=== PATIENT | male | born 1950 | race Caucasian/White ===

== ENCOUNTER 2019-03-12 12:20 | Emergency (ER) | payer OTHER, BC ==
--- NOTE | 2019-03-12 15:13 | ER ---
Nurse's Notes [facility] Name: Abhishek Maciel Age: 68 yrs Sex: Male : 1950 Arrival Date: 03/12/2019 Time: 12:23 Bed 28 Private MD: Diagnosis: Localized swelling, mass and lump, left lower limb Presentation: 03/12 12:44 Presenting complaint: Patient states: RLE swollen area that happened after his dog ran sv into his leg. The swelling has decreased but it still remains. Transition of care: patient was not received from another setting of care. Onset of symptoms was February 2019. Risk Assessment: Do you want to hurt yourself or someone else? Patient reports no desire to harm self or others. Care prior to arrival: None. 12:44 Method Of Arrival: Ambulatory sv 12:44 Acuity: JB 4 sv 14:10 Initial Sepsis Screen: Does the patient meet any 2 criteria? No. Patient's initial aa5 sepsis screen is negative. Does the patient have a suspected source of infection? No. Patient's initial sepsis screen is negative. Triage Assessment: 12:44 General: Appears in no apparent distress. comfortable, Behavior is calm, cooperative, sv appropriate for age. Pain: Denies pain. Neuro: Level of Consciousness is awake, alert, obeys commands, Gait is steady. Respiratory: Respiratory effort is even, unlabored, Respiratory pattern is regular, symmetrical. Musculoskeletal: Swelling present in medial aspect of left calf. Historical: - Allergies: 12:45 No Known Allergies; sv - PMHx: 12:45 None; sv - Ebola Screening: : No symptoms or risks identified at this time. Screenin:10 Abuse screen: Denies threats or abuse. Nutritional screening: No deficits noted. aa5 Tuberculosis screening: No symptoms or risk factors identified. Fall Risk None identified. Assessment: 14:10 General: Appears comfortable, Behavior is calm, cooperative. Pain: Denies pain. Neuro: aa5 Level of Consciousness is awake, alert, obeys commands, Oriented to person, place, time, situation. Cardiovascular: Patient's skin is warm and dry. Respiratory: Airway is patent Respiratory effort is even, unlabored, Respiratory pattern is regular, symmetrical. GI: No signs and/or symptoms were reported involving the gastrointestinal system. : No signs and/or symptoms were reported regarding the genitourinary system. EENT: No signs and/or symptoms were reported regarding the EENT system. Derm: Skin is pink, warm \T\ dry. Swollen area that is quater-sized noted to right moses, no bruising or redness noted to site. Musculoskeletal: Range of motion: intact in all extremities. 15:15 Reassessment: Patient is alert, oriented x 3, equal unlabored respirations, skin aa5 warm/dry/pink. Vital Signs: 12:45 BP 168 / 81; Pulse 69; Resp 18; Temp 98.4; Pulse Ox 98% ; Weight 74.84 kg; Height 5 ft. sv 8 in. (172.72 cm); Pain 0/10; 12:45 Body Mass Index 25.09 (74.84 kg, 172.72 cm) sv ED Course: 12:23 Patient arrived in ED. rg4 12:45 Triage completed. sv 12:46 Arm band placed on. sv 14:08 Sonia Orosco, RN is Primary Nurse. aa5 14:10 Patient has correct armband on for positive identification. Bed in low position. Call aa5 light in reach. Side rails up X 1. Adult w/ patient. 14:25 Arvin Meyers PA is PHCP. cp 14:25 Trevon Marks MD is Attending Physician. cp 15:12 Delfino Fiore MD is Referral Physician. cp 15:12 Referral Physician role handed off by Delfino Fiore MD cp 15:12 Joselito Curiel MD is Referral Physician. cp 15:15 No provider procedures requiring assistance completed. Patient did not have IV access aa5 during this emergency room visit. Administered Medications: No medications were administered Outcome: 15:13 Discharge ordered by MD. cp 15:15 Discharged to home ambulatory, with significant other. aa5 15:15 Condition: good 15:15 Discharge instructions given to patient, Instructed on discharge instructions, follow up and referral plans. Demonstrated understanding of instructions, follow-up care. 15:20 Patient left the ED. Signatures: Fatmata Weeks RN RN Sonia Orosco RN RN aa5 Arvin Meyers PA PA cp Baxter, Heather, RN RN hb Garcia, Rubi rg4
--- NOTE | 2019-03-12 15:13 | EDPHYS ---
Physician Documentation [facility] Name: Abhishek Maciel Age: 68 yrs Sex: Male : 1950 Arrival Date: 03/12/2019 Time: 12:23 Bed 28 Private MD: ED Physician Trevon Marks HPI: 03/12 14:30 This 68 yrs old Male presents to ER via Ambulatory with complaints of Leg cp Injury. 14:30 The patient presents with an injury, swelling, tenderness. The complaints affect the cp left moses. 14:30 Context: direct blow after pet dog struck leg. Onset: The symptoms/episode cp began/occurred 2 week(s) ago. Associated signs and symptoms: Pertinent positives: swelling, Pertinent negatives calf tenderness, fever, warmth. 14:30 Treatment prior to arrival includes: no previous treatment. cp Historical: - Allergies: 12:45 No Known Allergies; sv - PMHx: 12:45 None; sv - Ebola Screening: : No symptoms or risks identified at this time. ROS: 14:35 Constitutional: Negative for body aches, chills, fever, poor PO intake. cp 14:35 Cardiovascular: Negative for chest pain, edema, palpitations. cp 14:35 Respiratory: Negative for cough, shortness of breath, wheezing. 14:35 Skin: Positive for ecchymosis, hematoma, swelling, of the left moses. 14:35 Neuro: Negative for numbness. 14:35 All other systems are negative. Exam: 14:45 Constitutional: The patient appears in no acute distress, alert, awake, non-toxic, well cp developed, well nourished. 14:45 Head/Face: Normocephalic, atraumatic. cp 14:45 Cardiovascular: Rate: normal. 14:45 Respiratory: the patient does not display signs of respiratory distress, Respirations: normal. 14:45 Musculoskeletal/extremity: Extremities: grossly normal except: noted in the left moses: contusion, ecchymosis, swelling, tenderness, There is no evidence of decreased ROM, erythema, Perfusion: the extremity is normally perfused throughout, Sensation intact. Vital Signs: 12:45 BP 168 / 81; Pulse 69; Resp 18; Temp 98.4; Pulse Ox 98% ; Weight 74.84 kg; Height 5 ft. sv 8 in. (172.72 cm); Pain 0/10; 12:45 Body Mass Index 25.09 (74.84 kg, 172.72 cm) sv MDM: 14:25 Patient medically screened. cp 14:30 Differential diagnosis: abscess, hematoma, fracture. cp 15:12 Data reviewed: vital signs, nurses notes, radiologic studies, plain films. cp 15:12 Test interpretation: by ED physician or midlevel provider: xrays left tib/fib negative cp for fracture. Counseling: I had a detailed discussion with the patient and/or guardian regarding: the historical points, exam findings, and any diagnostic results supporting the discharge/admit diagnosis, radiology results, the need for outpatient follow up, a general surgeon, to return to the emergency department if symptoms worsen or persist or if there are any questions or concerns that arise at home. 03/12 12:46 Order name: Tib Fib Left XRAY sv Administered Medications: No medications were administered Disposition: 15:30 Chart complete. cp 03/13 09:03 Co-signature as Attending Physician, Trevon Marks MD I agree with the assessment and kdr plan of care. Disposition: 03/12/19 15:13 Discharged to Home. Impression: Localized swelling, mass and lump, left lower limb. - Condition is Stable. - Discharge Instructions: Elastic Bandage and RICE, Hematoma. - Medication Reconciliation Form, Thank You Letter, Antibiotic Education, Prescription Opioid Use form. - Follow up: Delfino Fiore MD; When: 2 - 3 days; Reason: Recheck today's complaints. Follow up: Joselito Curiel MD; When: 1 - 2 days; Reason: hematoma left lower leg. - Problem is new. - Symptoms are unchanged. Signatures: Dispatcher [employer] Fatmata Mcclain RN RN Trevon Ramon MD MD [facility] Sonia Orosco RN RN aa5 Arvin Meyers PA PA cp Baxter, Heather, JEAN RN hb Corrections: (The following items were deleted from the chart) 03/12 15:20 15:13 03/12/2019 15:13 Discharged to Home. Impression: Localized swelling, mass and hb lump, left lower limb. Condition is Stable. Forms are Medication Reconciliation Form, Thank You Letter, Antibiotic Education, Prescription Opioid Use. Follow up: Joselito Kovacev; When: 1 - 2 days; Reason: hematoma left lower leg. Problem is new. Symptoms are unchanged. cp
--- NOTE | 2019-03-12 16:33 | RAD REPORT ---
EXAM DESCRIPTION: RAD - Tib Fib Left - 03/12/2019 4:03 pm CLINICAL HISTORY: SWELLING COMPARISON: <Comparisons> FINDINGS: No acute fractures seen. Mild bony remodeling of the distal shaft of tibia has the appeara nce of the mildly in related to remote fracture. Advise correlation with trauma history in this regio n. Mild atherosclerosis.
[2019-03-12 16:50] VITALS: BP 168/81; TEMP 98.4; O2SAT 98
== END 2019-03-12 15:20 | disposition home or self-care (01) ==
LOC: ER 12:20
DX: R22.42 Localized swelling, mass and lump, left lower limb (principal)
CPT/HCPCS: 99281